=== PATIENT | male | born 1950 | race Caucasian/White ===

== ENCOUNTER → 2017-06-09 | Outpatient (CLI) | payer MEDICARE ==
[2017-06-09 12:40] LABS: MEAN CORPUSCULAR HEMOGLOBIN 30.4 pg (27.0-33.0); MEAN CORPUSCULAR HGB CONC 34.2 g/dl (32.0-36.5); MEAN CORPUSCULAR VOLUME 88.8 fl (80.0-96.0); PLATELET COUNT, AUTOMATED 249 10^3/uL (150-450); RED CELL DISTRIBUTION WIDTH 13.7 % (11.5-14.5); WHITE BLOOD COUNT 9.1 10^3/uL (4.0-10.0)
[2017-06-09 12:56] LABS: ANION GAP 5 MEQ/L (8-16); BLOOD UREA NITROGEN 21 MG/DL (7-18); CALCIUM LEVEL 8.4 MG/DL (8.8-10.2); CARBON DIOXIDE LEVEL 30 MEQ/L (21-32); CHLORIDE LEVEL 104 MEQ/L (98-107); CREATININE FOR GFR 1.04 MG/DL (0.70-1.30); GLOMERULAR FILTRATION RATE > 60.0 (>49); GLUCOSE, FASTING 93 MG/DL (80-110); POTASSIUM SERUM 4.4 MEQ/L (3.5-5.1); SODIUM LEVEL 139 MEQ/L (136-145)
== END ==
LOC: M LAB 11:58
PROVIDERS: ATTEND Internal Medicine Cardiovascular Disease
DX: I47.2 Ventricular tachycardia (principal)

== ENCOUNTER → 2018-09-29 | Outpatient (CLI) | payer MEDICARE ==
[2018-09-29 09:53] LABS: BLOOD UREA NITROGEN 23 MG/DL (7-18); CALCIUM LEVEL 8.9 MG/DL (8.8-10.2); CARBON DIOXIDE LEVEL 29 MEQ/L (21-32); CHLORIDE LEVEL 107 MEQ/L (98-107); CREATININE FOR GFR 0.96 MG/DL (0.70-1.30); GLOMERULAR FILTRATION RATE > 60.0 (>49); GLUCOSE, FASTING 84 MG/DL (70-100); MAGNESIUM LEVEL 2.2 MG/DL (1.8-2.4); POTASSIUM SERUM 4.2 MEQ/L (3.5-5.1); SODIUM LEVEL 141 MEQ/L (136-145)
== END ==
LOC: M LAB 08:55
PROVIDERS: ATTEND Internal Medicine Cardiovascular Disease
DX: I47.2 Ventricular tachycardia (principal); I50.22 Chronic systolic (congestive) heart failure

== ENCOUNTER → 2018-12-06 | Outpatient (CLI) | payer MEDICARE | LOC: M LAB 14:24 | PROVIDERS: ATTEND Internal Medicine Cardiovascular Disease | DX: I50.22 Chronic systolic (congestive) heart failure (principal) ==

== ENCOUNTER → 2019-01-08 | Outpatient (CLI) | payer MEDICARE ==
[2019-01-08 12:07] LABS: BASO % 0.4 % (0.0-1.0); HEMATOCRIT 39.8 % (42.0-52.0); HEMOGLOBIN 12.8 g/dl (13.5-17.5); LYMPH # 1.7 10^3/uL (1.5-4.5); LYMPH % 21.3 % (24.0-44.0); MEAN CORPUSCULAR HEMOGLOBIN 28.6 pg (27.0-33.0); MEAN CORPUSCULAR HGB CONC 32.2 g/dl (32.0-36.5); MEAN CORPUSCULAR VOLUME 88.8 fl (80.0-96.0); MONO # 0.7 10^3/uL (0.0-0.8); MONO % 8.2 % (0.0-5.0); NEUTROPHILS # 5.7 10^3/uL (1.8-7.7); NEUTROPHILS % 69.7 % (36.0-66.0); PLATELET COUNT, AUTOMATED 214 10^3/uL (150-450); RED BLOOD COUNT 4.48 10^6/uL (4.30-6.10); WHITE BLOOD COUNT 8.2 10^3/uL (4.0-10.0)
[2019-01-08 12:38] LABS: BLOOD UREA NITROGEN 17 MG/DL (7-18); CALCIUM LEVEL 9.3 MG/DL (8.8-10.2); CARBON DIOXIDE LEVEL 32 MEQ/L (21-32); CHLORIDE LEVEL 104 MEQ/L (98-107); CREATININE FOR GFR 0.97 MG/DL (0.70-1.30); GLOMERULAR FILTRATION RATE > 60.0 (>49); GLUCOSE, FASTING 94 MG/DL (70-100); MAGNESIUM LEVEL 2.2 MG/DL (1.8-2.4); NT-PRO BNP 1997 PG/ML (<125); POTASSIUM SERUM 4.5 MEQ/L (3.5-5.1); SODIUM LEVEL 139 MEQ/L (136-145)
== END ==
LOC: M LAB 11:12
PROVIDERS: ATTEND Internal Medicine Cardiovascular Disease
DX: I42.0 Dilated cardiomyopathy (principal); I50.22 Chronic systolic (congestive) heart failure; I47.2 Ventricular tachycardia; I48.2 Chronic atrial fibrillation

== ENCOUNTER 2019-06-09 08:17 | Emergency (ER) | payer MEDICARE ==
[~2019-06-09] VITALS: Ht 180.3 cm; Wt 84.1 kg
[2019-06-09 09:03] LABS: BASO % 0.7 % (0.0-1.0); EOS % 0.2 % (0.0-3.0); HEMATOCRIT 42.3 % (42.0-52.0); HEMOGLOBIN 13.3 g/dl (13.5-17.5); LYMPH # 1.5 10^3/uL (1.5-5.0); LYMPH % 24.7 % (24.0-44.0); MEAN CORPUSCULAR HEMOGLOBIN 28.7 pg (27.0-33.0); MEAN CORPUSCULAR HGB CONC 31.4 g/dl (32.0-36.5); MEAN CORPUSCULAR VOLUME 91.4 fl (80.0-96.0); MONO # 0.4 10^3/uL (0.0-0.8); MONO % 7.5 % (0.0-5.0); NEUTROPHILS # 3.9 10^3/uL (1.5-8.5); NEUTROPHILS % 66.2 % (36.0-66.0); PLATELET COUNT, AUTOMATED 167 10^3/uL (150-450); RED BLOOD COUNT 4.63 10^6/uL (4.30-6.10); WHITE BLOOD COUNT 5.9 10^3/uL (4.0-10.0)
[2019-06-09] MEDS ORDERED: CARV6.25 PO (09:11)
[2019-06-09] MEDS ORDERED: CLOP75TA2 (09:11)
[2019-06-09] MEDS ORDERED: MEXI15CA PO (09:11)
[2019-06-09] MEDS ORDERED: LOSA25TA14 PO (09:11)
[2019-06-09] MEDS ORDERED: MEMA10TA19 (09:11)
[2019-06-09] MEDS ORDERED: FAMO20TA5 PO (09:11)
[2019-06-09] MEDS ORDERED: LEVO75TA4 PO (09:11)
[2019-06-09] MEDS ORDERED: ASPI81TA85 PO (09:11)
[2019-06-09] MEDS ORDERED: FURO40TA2 PO (09:11)
[2019-06-09] MEDS ORDERED: CALCTAB38 PO (09:13)
[2019-06-09] MEDS ORDERED: FIBE625T PO (09:13)
[2019-06-09 09:25] LABS: INR 1.09; PROTHROMBIN TIME 13.8 SECONDS (11.8-14.0)
[2019-06-09 09:26] LABS: PARTIAL THROMBOPLASTIN TIME 29.9 SECONDS (25.0-38.4)
--- NOTE | 2019-06-09 09:40 | REP ---
CHEST, SINGLE VIEW: Single view of the chest was performed. There are no priors today for comparison. There is no acute infiltrate or pulmonary edema. There is mild cardiomegaly. Mediastinal silhouette is unremarkable. Left pacemaker is noted. IMPRESSION: Mild cardiomegaly. No acute infiltrate. Electronically Signed by Bruce Ta MD 06/09/2019 12:29 P
[2019-06-09 09:41] LABS: BLOOD UREA NITROGEN 22 MG/DL (7-18); CALCIUM LEVEL 8.7 MG/DL (8.8-10.2); CARBON DIOXIDE LEVEL 28 MEQ/L (21-32); CHLORIDE LEVEL 105 MEQ/L (98-107); CK-MB VALUE MASS 4.5 NG/ML (<3.6); CPK CREATINE PHOSPHOKINASE 123 U/L (39-308); CREATININE FOR GFR 0.96 MG/DL (0.70-1.30); FREE T4 1.19 NG/DL (0.76-1.46); GLOMERULAR FILTRATION RATE > 60.0 (>49); GLUCOSE, FASTING 179 MG/DL (70-100); MAGNESIUM LEVEL 2.1 MG/DL (1.8-2.4); MB/CK RELATIVE INDEX 3.66 (< OR =4); POTASSIUM SERUM 4.3 MEQ/L (3.5-5.1); SODIUM LEVEL 140 MEQ/L (136-145); TROPONIN I 0.02 NG/ML (< 0.10)
[2019-06-09] MEDS ORDERED: MEXI200C PO (09:54)
[2019-06-09 10:20] VITALS: BP 111/76
--- NOTE | 2019-06-09 20:58 | ECGEPIP ---
[facility] - ED Test Date: 2019-06-09 Pat Name: CAMILLA JOLLEY Department: Room: - Gender: Male Dietary Supervisor: : 1950 Requested By: Manuel Irwin Order Number: [id number] Reading MD: Manuel Mcdonald Measurements Intervals [place] Rate: 75 P: DC: 0 QRS: 260 QRSD: 177 T: 72 QT: 447 QTc: 501 Interpretive Statements ELECTRONIC VENTRICULAR PACEMAKER NO PRIORS FOR COMPARISON Electronically Signed on 06-09-2019 20:58:27 EST by Manuel Mcdonald
== END 2019-06-09 10:21 | disposition home or self-care (01) ==
LOC: M ED 08:17
DX: T82.897A Other specified complication of cardiac prosthetic devices, implants and grafts, initial encounter (principal); E11.9 Type 2 diabetes mellitus without complications; I10 Essential (primary) hypertension; I48.91 Unspecified atrial fibrillation; Z95.0 Presence of cardiac pacemaker; Z79.82 Long term (current) use of aspirin; Z79.899 Other long term (current) drug therapy

== ENCOUNTER 2019-06-20 15:40 | Emergency (ER) | payer MEDICARE ==
[~2019-06-20] VITALS: Ht 177.8 cm; Wt 79.5 kg
[~2019-06-20 15:40] MED LIST: ASPI81TA85 PO; CALCTAB38 PO; CARV6.25 PO; CLOP75TA2; FAMO20TA5 PO; FIBE625T PO; FURO40TA2 PO; LEVO75TA4 PO; LOSA25TA14 PO; MEMA10TA19; MEXI15CA PO; MEXI200C PO
--- NOTE | 2019-06-20 16:19 | REP ---
CHEST, SINGLE VIEW: COMPARISON: 06/09/2019 There is no acute infiltrate. Heart is mildly enlarged. Mediastinal silhouette is unchanged. Left dual lead pacemaker is again noted. IMPRESSION: No acute infiltrate. Mild cardiomegaly. Electronically Signed by Bruce Ta MD 06/20/2019 07:37 P
[2019-06-20 16:29] LABS: BASO % 0.3 % (0.0-1.0); HEMATOCRIT 42.7 % (42.0-52.0); HEMOGLOBIN 13.7 g/dl (13.5-17.5); LYMPH # 1.4 10^3/uL (1.5-5.0); LYMPH % 15.7 % (24.0-44.0); MEAN CORPUSCULAR HEMOGLOBIN 28.7 pg (27.0-33.0); MEAN CORPUSCULAR HGB CONC 32.1 g/dl (32.0-36.5); MEAN CORPUSCULAR VOLUME 89.5 fl (80.0-96.0); MONO # 0.7 10^3/uL (0.0-0.8); NEUTROPHILS # 6.9 10^3/uL (1.5-8.5); NEUTROPHILS % 75.6 % (36.0-66.0); PLATELET COUNT, AUTOMATED 212 10^3/uL (150-450); RED BLOOD COUNT 4.77 10^6/uL (4.30-6.10); WHITE BLOOD COUNT 9.1 10^3/uL (4.0-10.0)
[2019-06-20 16:56] LABS: BLOOD UREA NITROGEN 24 MG/DL (7-18); CALCIUM LEVEL 9.1 MG/DL (8.8-10.2); CARBON DIOXIDE LEVEL 25 MEQ/L (21-32); CHLORIDE LEVEL 105 MEQ/L (98-107); CK-MB VALUE MASS 3.7 NG/ML (<3.6); CPK CREATINE PHOSPHOKINASE 231 U/L (39-308); CREATININE FOR GFR 1.18 MG/DL (0.70-1.30); GLOMERULAR FILTRATION RATE > 60.0 (>49); GLUCOSE, FASTING 111 MG/DL (70-100); MAGNESIUM LEVEL 2.3 MG/DL (1.8-2.4); SODIUM LEVEL 140 MEQ/L (136-145); TROPONIN I 0.06 NG/ML (< 0.10)
[2019-06-20] MEDS ORDERED: MEXILETINE 150 MG CAP PO STA (17:00)
[2019-06-20 18:00] VITALS: BP 128/76
--- NOTE | 2019-06-22 07:46 | ECGEPIP ---
[facility] - ED Test Date: 2019-06-20 Pat Name: CAMILLA JOLLEY Department: Room: - Gender: Male Java Web Services Developer: : 1950 Requested By: HUNTER Baldwin Order Number: [id number] Reading MD: Ban Degroot Measurements Intervals [place] Rate: 75 P: [place]: 0 QRS: -85 QRSD: 177 T: 70 QT: 443 QTc: 496 Interpretive Statements ELECTRONIC VENTRICULAR PACEMAKER ABNORMAL RHYTHM ECG SIMILAR 06/09/19 Electronically Signed on 06-22-2019 7:45:59 EST by Ban Degroot
== END 2019-06-20 18:03 | disposition short-term general hospital (02) ==
LOC: M ED 15:40
DX: Z45.02 Encounter for adjustment and management of automatic implantable cardiac defibrillator (principal); I47.2 Ventricular tachycardia; E11.9 Type 2 diabetes mellitus without complications; I10 Essential (primary) hypertension; R94.31 Abnormal electrocardiogram [ECG] [EKG]; Z79.82 Long term (current) use of aspirin; Z79.899 Other long term (current) drug therapy

== ENCOUNTER 2019-06-27 09:20 | Emergency (ER) | payer MEDICARE ==
[~2019-06-27] VITALS: Ht 177.8 cm; Wt 82.5 kg
[2019-06-27 09:59] LABS: BASO % 0.4 % (0.0-1.0); HEMATOCRIT 31.5 % (42.0-52.0); HEMOGLOBIN 10.1 g/dl (13.5-17.5); LYMPH # 0.8 10^3/uL (1.5-5.0); LYMPH % 10.7 % (24.0-44.0); MEAN CORPUSCULAR HEMOGLOBIN 28.9 pg (27.0-33.0); MEAN CORPUSCULAR HGB CONC 32.1 g/dl (32.0-36.5); MONO # 0.6 10^3/uL (0.0-0.8); MONO % 8.2 % (0.0-5.0); NEUTROPHILS # 5.9 10^3/uL (1.5-8.5); PLATELET COUNT, AUTOMATED 157 10^3/uL (150-450); WHITE BLOOD COUNT 7.4 10^3/uL (4.0-10.0)
[2019-06-27 10:31] LABS: BLOOD UREA NITROGEN 16 MG/DL (7-18); CALCIUM LEVEL 8.2 MG/DL (8.8-10.2); CARBON DIOXIDE LEVEL 26 MEQ/L (21-32); CHLORIDE LEVEL 106 MEQ/L (98-107); CK-MB VALUE MASS 2.9 NG/ML (<3.6); CPK CREATINE PHOSPHOKINASE 522 U/L (39-308); CREATININE FOR GFR 0.87 MG/DL (0.70-1.30); FREE T4 1.47 NG/DL (0.76-1.46); GLOMERULAR FILTRATION RATE > 60.0 (>49); GLUCOSE, FASTING 138 MG/DL (70-100); MAGNESIUM LEVEL 2.2 MG/DL (1.8-2.4); MB/CK RELATIVE INDEX 0.56 (< OR =4); NT-PRO BNP 6218 PG/ML (<125); POTASSIUM SERUM 3.8 MEQ/L (3.5-5.1); SODIUM LEVEL 139 MEQ/L (136-145); TROPONIN I 0.86 NG/ML (< 0.10)
[2019-06-27] MEDS ORDERED: MEXI200C PO (10:35)
[2019-06-27] MEDS ORDERED: ISOVUE-370 76% 100ML VIAL (Q9967) As Ordered ONE (10:46)
--- NOTE | 2019-06-27 11:16 | REP ---
PORTABLE CHEST X-RAY: SINGLE VIEW. HISTORY: Chest pain. COMPARISON STUDY: June 20, 2019 FINDINGS: A multilead pacemaker is seen in the enlarged heart. Cardiomegaly is unchanged from prior study. Pulmonary vasculature is cephalized and congested. There is a mild diffuse interstitial fibrosis pattern again noted. IMPRESSION: CHF pattern. Pacemaker. Chronic-appearing interstitial changes consistent with some superimposed fibrosis. Electronically Signed by Abdi Stratton MD 06/27/2019 02:48 P
--- NOTE | 2019-06-27 12:01 | REP ---
CT PULMONARY ANGIOGRAM: WITH IV CONTRAST. HISTORY: Rule out tamponade, pulmonary embolus. COMPARISON STUDIES: No comparison studies available CONTRAST DOSE: 75 mL of Isovue [address] TECHNIQUE: Helical scanning is acquired and overlapping 1.5 mm and contiguous 3 mm axial images are reformatted. In addition, maximum intensity projection and multiplanar re-formation images are generated in sagittal and coronal imaging projections. CT PULMONARY ANGIOGRAPHIC FINDINGS: There is good opacification of the pulmonary arterial tree. There is no CT evidence of pulmonary embolus. Moderate cardiac enlargement is seen with a multilead pacemaker in place. There is a very small quantity of pericardial fluid visible. There are small bilateral pleural effusions. No hilar or mediastinal mass or adenopathy is observed. There is a basket-like occlusion device in the left atrial appendage. There is no evidence of aortic aneurysm or dissection. There is some fissural thickening. No infiltrate is seen. Slightly prominent interstitial markings in the bases bilaterally. No hilar or mediastinal mass is observed. IMPRESSION: No CT evidence of pulmonary embolus. Small bilateral pleural and pericardial effusions. Pacemaker, cardiomegaly, left atrial appendage occlusion device noted. Somewhat prominent interstitial markings, question interstitial edema. CHF pattern. Electronically Signed by Abdi Stratton MD 06/27/2019 02:49 P
[2019-06-27 13:03] VITALS: BP 110/69
--- NOTE | 2019-06-27 19:49 | ECGEPIP ---
[facility] - ED Test Date: 2019-06-27 Pat Name: CAMILLA JOLLEY Department: Room: - Gender: Male Improvement Lead: CT : 1950 Requested By: Fabio Puckett Order Number: [id number] Reading MD: Fabio Puckett Measurements Intervals [place] Rate: 85 P: -75 MO: 143 QRS: 253 QRSD: 173 T: 77 QT: 439 QTc: 525 Interpretive Statements ELECTRONIC ATRIAL PACEMAKER ELECTRONIC VENTRICULAR PACEMAKER ABNORMAL RHYTHM ECG CW 06/20/[address] T WAVE CHANGES Electronically Signed on 06-27-2019 19:49:13 EST by Fabio Puckett
== END 2019-06-27 13:05 | disposition short-term general hospital (02) ==
LOC: M ED 09:20
DX: I21.4 Non-ST elevation (NSTEMI) myocardial infarction (principal); I11.0 Hypertensive heart disease with heart failure; I50.20 Unspecified systolic (congestive) heart failure; I48.91 Unspecified atrial fibrillation; R94.31 Abnormal electrocardiogram [ECG] [EKG]; Z79.82 Long term (current) use of aspirin; Z79.899 Other long term (current) drug therapy; Z88.8 Allergy status to other drugs, medicaments and biological substances; Z95.0 Presence of cardiac pacemaker
CPT/HCPCS: 36415; 71045; 71275; 80047; 80048; 81001; 82550; 82553; 83735; 83880; 84439; 84443; 84484; 85025; 93005; 93041; 94760; 99285; Q9967

== ENCOUNTER 2019-09-03 23:17 | Emergency (ER) | payer MEDICARE ==
[~2019-09-03] VITALS: Ht 180.3 cm; Wt 72.3 kg
[2019-09-04 00:35] LABS: INFLUENZA A AMPLIFICATION NEGATIVE (NEGATIVE); INFLUENZA B AMPLIFICATION NEGATIVE (NEGATIVE)
[2019-09-04] MEDS ORDERED: DEXTROMETHORPHAN 60MG/10ML SUSP 90ML BTL(DELSYM) PO ONE (00:45)
[2019-09-04] MEDS ORDERED: ROBI1LIQ9 PO (00:52)
[2019-09-04 01:20] VITALS: BP 105/65
--- NOTE | 2019-09-05 09:10 | REP ---
Clinical: Cough. Comparison: 06/27/2019. Findings: Stable cardiomegaly. Dual lead pacemaker. Lung tobar demonstrate chronic changes. No focal consolidation, effusion, or pneumothorax. Impression: Cardiomegaly and chronic stable changes. No obvious acute process. Electronically Signed by Dez Godoy MD 09/05/2019 09:02 A
== END 2019-09-04 01:43 | disposition home or self-care (01) ==
LOC: EDBD 23:17 → M ED 23:17
DX: R05 Cough (principal); I11.0 Hypertensive heart disease with heart failure; I50.9 Heart failure, unspecified; I48.91 Unspecified atrial fibrillation; I25.10 Atherosclerotic heart disease of native coronary artery without angina pectoris; Z79.899 Other long term (current) drug therapy; Z79.82 Long term (current) use of aspirin; Z88.8 Allergy status to other drugs, medicaments and biological substances

== ENCOUNTER → 2020-10-19 | Outpatient (CLI) | payer MEDICARE, MEDICAID ==
[~2020-10-19] MED LIST changes: -ASPI81TA85 PO; +ASPI81TA86 PO; +ROBI1LIQ9 PO
--- NOTE | 2020-10-19 22:12 | ECGEPIP ---
[facility] Test Date: 2020-10-19 Pat Name: CAMILLA JOLLEY Department: Room: - Gender: Male Lead Manufacturing Engineering Tech: THOMAS : 1950 Requested By: Juan Jose Mata Order Number: [id number] Reading MD: Kingsley Trujillo Measurements Intervals [place] Rate: 70 P: [place]: QRS: 263 QRSD: 170 T: 51 QT: 454 QTc: 490 Interpretive Statements Biventricular paced rhythm Electronically Signed on 10-19-2020 22:12:50 EDT by Kingsley Trujillo
--- NOTE | 2020-10-22 09:49 | ECHO ---
DATE OF PROCEDURE: 10/19/2020 Age: 70 Gender: Male Height: 180 cm Weight: 83 kg REFERRING PHYSICIAN: Juan Jose Diane M.D. INDICATION: Cardiac murmur, unspecified. MEASUREMENTS: 2D Measurements: Aortic root 3.2 cm Left atrium 5.1 cm Intraventricular septum 1.08 cm Posterior wall 1.09 cm Left ventricle diastole 5.85 cm Left ventricle systole 5.6 cm Aortic annulus 2.5 cm Right ventricle 5.3 cm Left atrial volume index 54 Doppler Measurements: [id number] aortic regurgitation No aortic stenosis Aortic regurgitation pressure halftime 493 msec Aortic valve velocity 116 cm/s LVOT velocity 53.1 cm/s LVOT VTI 9.8 cm Moderate mitral regurgitation Moderate tricuspid regurgitation Estimated right ventricular systolic pressure 64 mmHg Estimated right atrial pressure 10 mmHg No pulmonic regurgitation Inferior vena cava 1.6 cm with approximately 50% respiratory variation MITRAL ANNULAR TISSUE DOPPLER E prime septal 5.5 cm/s, E prime lateral 6.0 cm/s DESCRIPTION: Rhythm appeared to be ventricular paced at 70 beats per minute. Image quality was adequate. This was a 2D, M-mode, color flow Doppler, and pulsed wave Doppler examination including mitral annular tissue Doppler. No pericardial effusion. CONCLUSIONS: 1. Left ventricle is mildly dilated at end-diastole and moderately dilated at end-systole. Normal LV wall thickness. Severe global LV hypokinesis. Severe reduction of overall LV systolic function. LVEF 20% by visual assessment. 2. Severe left atrial dilatation by left atrial volume index. 3. Moderate aortic valve sclerosis of a 3-cuspid aortic valve. [id number] aortic regurgitation. No aortic stenosis. 4. Probably structurally normal mitral leaflets. No mitral valve prolapse. No flail segments or broken chordae. Moderate mitral regurgitation. 5. Suggestive of severe elevation of estimated right ventricle systolic pressure (64 mmHg, estimated right atrial pressure of 10 mmHg). Mildly dilated right ventricle with normal right ventricle systolic function. Structurally normal appearing tricuspid leaflets. Moderate tricuspid regurgitation. Severe right atrial dilatation. 6. Presence of cardiac rhythm management internship seen within the right atrium and into the right ventricle. MTDD
== END ==
LOC: M CARPUL 10:04
PROVIDERS: ATTEND Internal Medicine Cardiovascular Disease
DX: I50.22 Chronic systolic (congestive) heart failure (principal)

== ENCOUNTER 2021-11-29 08:45 | Emergency (ER) | payer MEDICARE, MEDICAID ==
[~2021-11-29] VITALS: Ht 180.3 cm; Wt 84.4 kg
[~2021-11-29 08:45] MED LIST changes: +LOSA25TA13 PO; -LOSA25TA14 PO
[2021-11-29 09:15] LABS: BASO % 0.5 % (0.0-1.0); EOS # 0.2 10^3/uL (0.0-0.5); EOS % 2.7 % (0.0-3.0); HEMATOCRIT 34.1 % (42.0-52.0); HEMOGLOBIN 11.2 g/dl (13.5-17.5); LYMPH # 1.2 10^3/uL (1.5-5.0); LYMPH % 19.1 % (24.0-44.0); MEAN CORPUSCULAR HEMOGLOBIN 30.9 pg (27.0-33.0); MEAN CORPUSCULAR HGB CONC 32.8 g/dl (32.0-36.5); MEAN CORPUSCULAR VOLUME 93.9 fl (80.0-96.0); MONO # 0.5 10^3/uL (0.0-0.8); MONO % 7.5 % (2.0-8.0); NEUTROPHILS # 4.2 10^3/uL (1.5-8.5); NEUTROPHILS % 69.5 % (36.0-66.0); PLATELET COUNT, AUTOMATED 171 10^3/uL (150-450); RED BLOOD COUNT 3.63 10^6/uL (4.30-6.10)
[2021-11-29 09:45] LABS: MB/CK RELATIVE INDEX 3.16 (< OR =4)
[2021-11-29 09:51] LABS: ALBUMIN 2.9 GM/DL (3.2-5.2); ALT/SGPT 23 U/L (12-78); BILIRUBIN,DIRECT 0.2 MG/DL (0.0-0.2); BILIRUBIN,TOTAL 0.4 MG/DL (0.2-1.0); BLOOD UREA NITROGEN 20 MG/DL (7-18); CALCIUM LEVEL 6.5 MG/DL (8.8-10.2); CARBON DIOXIDE LEVEL 21 MEQ/L (21-32); CHLORIDE LEVEL 117 MEQ/L (98-107); CREATININE FOR GFR 0.84 MG/DL (0.70-1.30); GLOMERULAR FILTRATION RATE > 60.0 (>42); GLUCOSE, FASTING 156 MG/DL (70-100); MAGNESIUM LEVEL 1.8 MG/DL (1.8-2.4); POTASSIUM SERUM 3.4 MEQ/L (3.5-5.1); SODIUM LEVEL 145 MEQ/L (136-145); TOTAL PROTEIN 4.9 GM/DL (6.4-8.2)
[2021-11-29] MEDS ORDERED: POTASSIUM CHLORIDE 10MEQ SR TABLET PO ONE (10:00)
[2021-11-29] MEDS ORDERED: MEXI250C PO (10:11)
[2021-11-29] MEDS ORDERED: GLIP5TAB8 PO (10:11)
[2021-11-29] MEDS ORDERED: CARV25TA PO (10:11)
[2021-11-29] MEDS ORDERED: BAYE325T12 PO (10:11)
[2021-11-29] MEDS ORDERED: LOSA100T45 PO (10:11)
[2021-11-29] MEDS ORDERED: SPIR-10 PO (10:11)
[2021-11-29] MEDS ORDERED: METF500T13 PO (10:11)
[2021-11-29 11:03] LABS: CK-MB VALUE MASS 3.9 NG/ML (<3.6); MB/CK RELATIVE INDEX 2.05 (< OR =4)
[2021-11-29] MEDS ORDERED: POTA20PW GT (11:20)
[2021-11-29 12:00] VITALS: BP 111/70
== END 2021-11-29 12:11 | disposition home or self-care (01) ==
LOC: EDBD 08:45 → M ED 08:45
DX: I47.2 Ventricular tachycardia (principal); I49.01 Ventricular fibrillation; Z95.810 Presence of automatic (implantable) cardiac defibrillator; I10 Essential (primary) hypertension; E11.9 Type 2 diabetes mellitus without complications; Z79.899 Other long term (current) drug therapy; Z79.890 Hormone replacement therapy; Z79.84 Long term (current) use of oral hypoglycemic drugs; Z79.82 Long term (current) use of aspirin; Z88.8 Allergy status to other drugs, medicaments and biological substances

== ENCOUNTER 2023-05-07 20:33 | Emergency (ER) | payer MEDICARE, MEDICAID ==
[~2023-05-07] VITALS: Ht 180.3 cm; Wt 75.0 kg
[~2023-05-07 20:33] MED LIST changes: +BAYE325T12 PO; +CARV25TA PO; +GLIP5TAB17 PO; +LOSA100T46 PO; +METF500T13 PO; +MEXI250C PO; +POTA20PW GT; +SPIR-10 PO
[2023-05-07 20:43] VITALS: BP 134/69; TEMP 97.3; O2SAT 98
[2023-05-07] MEDS ORDERED: MIDO5TA PO (21:27)
[2023-05-07 21:33] LABS: BASO % 0.4 % (0.0-1.0); HEMATOCRIT 38.1 % (42.0-52.0); HEMOGLOBIN 11.6 g/dl (13.5-17.5); LYMPH # 1.4 10^3/uL (1.5-5.0); LYMPH % 17.7 % (24.0-44.0); MEAN CORPUSCULAR HEMOGLOBIN 27.7 pg (27.0-33.0); MEAN CORPUSCULAR HGB CONC 30.4 g/dl (32.0-36.5); MEAN CORPUSCULAR VOLUME 90.9 fl (80.0-96.0); MONO # 0.9 10^3/uL (0.0-0.8); MONO % 10.8 % (2.0-8.0); NEUTROPHILS # 5.6 10^3/uL (1.5-8.5); NEUTROPHILS % 70.7 % (36.0-66.0); PLATELET COUNT, AUTOMATED 239 10^3/uL (150-450); RED BLOOD COUNT 4.19 10^6/uL (4.30-6.10)
[2023-05-07 21:58] LABS: BLOOD UREA NITROGEN 25 MG/DL (9-23); CALCIUM LEVEL 9.2 MG/DL (8.3-10.6); CARBON DIOXIDE LEVEL 31 MMOL/L (20-31); CHLORIDE LEVEL 106 MMOL/L (98-107); CREATININE FOR GFR 0.88 MG/DL (0.70-1.30); GLOMERULAR FILTRATION RATE > 60.0 (>42); GLUCOSE, FASTING 182 MG/DL (74-106); MAGNESIUM LEVEL 2.3 MG/DL (1.8-2.4); POTASSIUM SERUM 4.1 MMOL/L (3.5-5.1); SODIUM LEVEL 142 MMOL/L (136-145)
[2023-05-07 22:11] LABS: FREE T4 1.22 NG/DL (0.89-1.76)
== END 2023-05-07 23:28 | disposition home or self-care (01) ==
LOC: M ED 20:33 → EDBD 20:33 → M ED 23:28
DX: T82.897A Other specified complication of cardiac prosthetic devices, implants and grafts, initial encounter (principal); I47.20 Ventricular tachycardia, unspecified; I10 Essential (primary) hypertension; G47.33 Obstructive sleep apnea (adult) (pediatric); E11.9 Type 2 diabetes mellitus without complications; Z79.82 Long term (current) use of aspirin; Z79.4 Long term (current) use of insulin; Z79.899 Other long term (current) drug therapy; Z88.8 Allergy status to other drugs, medicaments and biological substances

== ENCOUNTER 2023-11-19 08:56 | Emergency (ER) | payer MEDICARE, MEDICAID ==
[~2023-11-19] VITALS: Ht 180.3 cm; Wt 65.9 kg
[~2023-11-19 08:56] MED LIST changes: +MEMA10TA; -MEMA10TA19; +MIDO5TA PO
[2023-11-19] MEDS ORDERED: FARX1TAB5 (09:30)
[2023-11-19] MEDS ORDERED: BUME2TAB3 (09:30)
[2023-11-19] MEDS ORDERED: ATOR1TAB21 (09:30)
[2023-11-19] MEDS ORDERED: METO25TA (09:30)
[2023-11-19] MEDS ORDERED: METO1TAB7 (09:30)
[2023-11-19] MEDS ORDERED: EPLE25TA2 (09:30)
[2023-11-19 09:59] LABS: HEMATOCRIT 34.1 % (42.0-52.0); MEAN CORPUSCULAR HEMOGLOBIN 27.4 pg (27.0-33.0); MEAN CORPUSCULAR HGB CONC 32.3 g/dl (32.0-36.5); PLATELET COUNT, AUTOMATED 201 10^3/uL (150-450); RED BLOOD COUNT 4.01 10^6/uL (4.30-6.10); WHITE BLOOD COUNT 9.6 10^3/uL (4.0-10.0)
[2023-11-19 10:27] LABS: BLOOD UREA NITROGEN 33 MG/DL (9-23); CALCIUM LEVEL 9.1 MG/DL (8.3-10.6); CARBON DIOXIDE LEVEL 32 MMOL/L (20-31); CHLORIDE LEVEL 93 MMOL/L (98-107); CREATININE FOR GFR 0.94 MG/DL (0.70-1.30); GLOMERULAR FILTRATION RATE > 60.0 (>42); GLUCOSE, FASTING 189 MG/DL (74-106); POTASSIUM SERUM 2.7 MMOL/L (3.5-5.1); SODIUM LEVEL 134 MMOL/L (136-145)
[2023-11-19] MEDS: KCL 10MEQ/100ML SWI (KRUN) 10 MEQ in IV 1 EA IV ONE (10:45)
[2023-11-19] MEDS ORDERED: SPIR-10 PO (12:13)
[2023-11-19] MEDS ORDERED: K-TA1TAB PO (12:13)
[2023-11-19 12:27] VITALS: BP 99/70; TEMP 97.3; O2SAT 100
== END 2023-11-19 12:38 | disposition home or self-care (01) ==
LOC: EDBD 08:56 → M ED 08:56
DX: R55 Syncope and collapse (principal); E87.6 Hypokalemia; I47.20 Ventricular tachycardia, unspecified; I48.91 Unspecified atrial fibrillation; I50.22 Chronic systolic (congestive) heart failure; Z88.8 Allergy status to other drugs, medicaments and biological substances; Z79.1 Long term (current) use of non-steroidal anti-inflammatories (NSAID); Z79.84 Long term (current) use of oral hypoglycemic drugs; Z79.899 Other long term (current) drug therapy